=== PATIENT | male | born 1990 | race African-American/Black ===

== ENCOUNTER 2023-07-24 23:20 | Observation (INO) | payer OTHER ==
[2023-07-24 23:26] VITALS: BMI 29.9
[2023-07-25 00:53] LABS: PH,URINE 5.5 (5.0-8.0); URINE APPEARANCE CLEAR; URINE BILIRUBIN NEGATIVE (NEGATIVE); URINE COLOR DK YELLOW; URINE GLUCOSE (UA) NEGATIVE (NEGATIVE); URINE KETONE TRACE (NEGATIVE); URINE LEUK ESTERASE NEGATIVE (NEGATIVE); URINE NITRITE NEGATIVE (NEGATIVE); URINE PROTEIN TRACE (NEGATIVE)
[2023-07-25 00:53] LABS: BASO % 0.1 % (0-2.0); EOS % 0.6 % (0-4.5); HEMATOCRIT 47.7 % (35.4-49); HEMOGLOBIN 16.2 GM/dL (11.7-16.9); LYMPH % 5.2 % (8-40); MCH 31.9 pg (25.7-33.7); MONO % 6.4 % (3.8-10.2); NEUT % 87.7 % (42.8-82.8); PLATELET COUNT 261 10^3/uL (134-434); RBC 5.07 M/mm3 (4.00-5.60); RDW 12.3 % (11.9-15.9); WHITE BLOOD COUNT 7.2 K/mm3 (4.0-10.0)
[2023-07-25] MEDS ORDERED: ACETAMINOPHEN INJECTION 100 ML IVPB ONE (01:17)
[2023-07-25] MEDS: ACETAMINOPHEN 1000 MG/100 ML BAG IVPB ONE (01:19)
[2023-07-25 01:44] LABS: POTASSIUM 3.2 mmol/L (3.5-5.1)
[2023-07-25 01:47] LABS: ALBUMIN 3.4 g/dl (3.4-5.0); BLOOD UREA NITROGEN 9.2 mg/dL (7-18); CALCIUM 7.5 mg/dL (8.5-10.1)
[2023-07-25 01:50] LABS: CREATININE 1.1 mg/dL (0.55-1.3)
[2023-07-25 01:52] LABS: BILIRUBIN,TOTAL 1.5 mg/dL (0.2-1); TOT PROT 6.1 g/dl (6.4-8.2)
[2023-07-25 02:12] LABS: INR 1.2 (0.83-1.09); PROTHROMBIN TIME (PATIENT) 13.9 SEC (9.7-13.0)
[2023-07-25 02:15] LABS: ACTIVATED PTT 30.3 SECONDS (25.2-36.5)
[2023-07-25] MEDS ORDERED: PIPERACILLIN/TAZOB 3.375 GM 3.375 GM/50 ML BAG IVPB ONE (04:00)
[2023-07-25] MEDS: PIPERACILLIN/TAZOB 3.375 GM 3.375 GM in DEXTROSE 5%-WATER - 50 ML IVPB ONE (04:09)
[2023-07-25 07:57] VITALS: TEMP 98.2
[2023-07-25 09:29] VITALS: PULSE 86; RESP 18
[2023-07-25] MEDS ORDERED: KCL 10 MEQ IVPB 10 MEQ/100 ML INFUS.BAG IVPB ONE ×2 (09:29→10:51)
[2023-07-25] MEDS: KCL 10 MEQ IVPB 10 MEQ/100 ML INFUS.BAG IVPB SCH (09:45)
[2023-07-25 12:22] VITALS: BP 129/56
== END 2023-07-25 12:24 | disposition home or self-care (01) ==
LOC: JER 23:20 → JERBED 07-25 03:53
PROVIDERS: ADMIT Internal Medicine; ATTEND Internal Medicine
PROC: 3E03329 Introduction of Other Anti-infective into Peripheral Vein, Percutaneous Approach (ICD-10-PCS; principal; 2023-07-25)
PROC: 3E033NZ Introduction of Analgesics, Hypnotics, Sedatives into Peripheral Vein, Percutaneous Approach (ICD-10-PCS; 2023-07-25)
DX: R10.31 Right lower quadrant pain (principal); R10.30 Lower abdominal pain, unspecified; R19.7 Diarrhea, unspecified; R63.0 Anorexia; Z91.011 Allergy to milk products
CPT/HCPCS: 36415; 74177-TC; 80053; 81003; 85025; 85027; 85610; 85730; 86850; 86900; 86901; 96365; 96375; 99285-25; G0378; J0131